=== PATIENT | female | born 1945 | race Caucasian/White ===

== ENCOUNTER → 2017-02-11 | Day surgery (SDC) | payer MEDICARE, OTHER ==
[~2017-02-11] MED LIST: ALLE60TA OR; ALLE60TA PO; BUPIVACAINE HCL PF 0.5% 30 ML VIAL ONE; CALC-187 PO; CALC500T6 PO; ESTR1TAB68; ESTR1TAB68 PO; FLON0.053; FLUT1SPR5 EACH NARE; GABA400C5 PO; IOHEXOL 180 MG/ML 20 ML VIAL (for RAD DIAG) EPIDURAL ONE; LAMI250T PO; LEVO.1 PO; LIDOCAINE HCL PF 2% VIAL ONE; LORT5TAB PO; MOBI15TA OR; MOBI15TA PO; MONT10TA2 PO; MULTTAB67 PO; NEUR400C PO; PROPOFOL 200 MG/20 ML AMP IV ONE; RANO500 PO; TAB-TAB PO; TIZA4 PO; TRIAMCINOLONE ACETONIDE 40 MG/ML VIAL NB ONE; methylPREDNISolone ACETATE 40 MG/ML VIAL I-ARTICULR ONE
--- NOTE | 2017-02-15 07:10 | M6 ---
cc: ABIGAIL DEY M.D. DATE: 02/11/2017 DATE OF : 1945 PROCEDURE Fluoroscopically guided left L3 selective nerve root injection. PROCEDURE NOTE History and physical was completed and signed. Consent was signed. Procedure site was marked. Medications were listed and reconciled. Pain score was recorded. Allergies were noted. Timeout was taken. Fluoroscopy time was recorded where applicable. Sedation was administered or directed by Dr. Dey. The patient was given oxygen. The patient was monitored by a registered nurse. Total procedure time was greater than 15 minutes. An IV was started, blood pressure cuff, pulse oximeter and EKG were applied. The patient was placed in the prone position on a Fredy table, sedated with small amounts of propofol titrated to effect. Vital signs were monitored and remained stable throughout the procedure. The lumbar area was prepped with alcohol and 10% Betadine solution, draped with sterile drapes. Fluoroscopy was used in both the AP and lateral projection to clearly visualize the L3-4 neural foramen. A sterile 22-gauge, 3-1/2-inch Chiba needle was advanced into the dorsal aspect of the foramen. There was negative aspiration for blood or any other type of fluid. There was no washout to injection of Omnipaque dye. The patient was given 2 mL of 2% Xylocaine, 2 mL of Omnipaque and 60 mg of Kenalog. Following the procedure the patient was taken to the recovery room with stable vital signs, neurologically intact. She will be evaluated immediately and with follow-up to determine if she experiences any significant improvement. Her recent MRI shows a left-sided bulging disc at L2-3. If she does not improve with this injection we will follow with a left L2-3 transforaminal nerve root injection. The patient is, however, having pain that extends all way down to her knee in an L3 distribution. W. MD JANIYA Lazaro/FRANKLIN /9:36 AM /7:06 AM
== END | disposition home or self-care (01) ==
LOC: PHSDC 07:45
PROVIDERS: ATTEND Pain Medicine Interventional Pain Medicine
DX: M79.605 Pain in left leg (principal)
CPT/HCPCS: 64483; 99152; J1030; J3301; Q9965